=== PATIENT | male | born 1945 | race Caucasian/White ===

== ENCOUNTER 2018-09-13 18:59 | Emergency (ER) | payer OTHER, MEDICARE ==
[2018-09-13 19:09] VITALS: TEMP 98.3
[2018-09-13] MEDS ORDERED: SODIUM CHLORIDE 0.9% 1,000 ML IV STA (19:20)
--- NOTE | 2018-09-13 19:21 | ED ---
Recheck HPI - General Chief Complaint: Recheck/Abnormal Lab/Rx Stated Complaint: High BP Time Seen by Provider: 09/13/18 19:20 Source: patient, RN notes reviewed, old records reviewed Mode of arrival: wheelchair Limitations: no limitations - History of Present Illness Initial Comments: This is a 72-year-old male the ER for evaluation of elevated blood pressure. Patient has history of high blood pressure, patient is and monitoring of blood pressure decreased rate to the nursing and was high. Patient notes that the blood pressure is been slowly increasing. He is asymptomatic denies headache chest pain shortness of breath or abdominal pain. No recent change in medications denies drugs or alcohol MD Complaint: other (Abnormal blood pressure, elevated from normal) -: unknown Returns Today for: other (Patient concern for elevated blood pressure) Symptoms Since Prior Visit: no new symptoms Associated Symptoms: none - Related Data Home Medications Medication Instructions Recorded Confirmed Aspirin EC [Ecotrin Low Dose] 81 mg PO BID 09/13/18 09/13/18 Baclofen [Lioresal] 10 mg PO BID PRN 09/13/18 09/13/18 Finasteride [Proscar] 5 mg PO HS 09/13/18 09/13/18 Losartan Potassium 50 mg PO BID 09/13/18 09/13/18 Naproxen 500 mg PO AC-BID 09/13/18 09/13/18 Pravastatin Sodium [Pravachol] 40 mg PO HS 09/13/18 09/13/18 Sertraline [Zoloft] 50 mg PO DAILY 09/13/18 09/13/18 Tamsulosin HCl [Flomax] 0.4 mg PO HS 09/13/18 09/13/18 amLODIPine [Norvasc] 5 mg PO BID 09/13/18 09/13/18 hydrALAZINE HCL [Apresoline] 50 mg PO TID 09/13/18 09/13/18 traMADol HCL [Ultram] 50 mg PO TID PRN 09/13/18 09/13/18 Previous Rx's Medication Instructions Recorded Metoprolol Tartrate [Lopressor] 50 mg PO BID #60 tab 09/13/18 Allergies Allergy/AdvReac Type Severity Reaction Status Date / Time Iodinated Contrast- Oral and Allergy Rash/Hives Verified 09/13/18 19:43 IV Dye Review of Systems ROS Statement: Those systems with pertinent positive or pertinent negative responses have been documented in the HPI. ROS Other: All systems not noted in ROS Statement are negative. Past Medical History Past Medical History: Hypertension, Pneumonia History of Any Multi-Drug Resistant Organisms: None Reported Past Surgical History: Hernia Repair Additional Past Surgical History / Comment(s): cataract, eye lift Past Psychological History: PTSD Smoking Status: Never smoker Past Alcohol Use History: Rare Past Drug Use History: None Reported General Exam Limitations: no limitations General appearance: alert, in no apparent distress Head exam: Present: atraumatic, normocephalic, normal inspection Eye exam: Present: normal appearance, PERRL, EOMI. Absent: scleral icterus, conjunctival injection, periorbital swelling ENT exam: Present: normal exam, mucous membranes moist Neck exam: Present: normal inspection. Absent: tenderness, meningismus, lymphadenopathy Respiratory exam: Present: normal lung sounds bilaterally. Absent: respiratory distress, wheezes, rales, rhonchi, stridor Cardiovascular Exam: Present: regular rate, normal rhythm, normal heart sounds. Absent: systolic murmur, diastolic murmur, rubs, gallop, clicks GI/Abdominal exam: Present: soft, normal bowel sounds. Absent: distended, tenderness, guarding, rebound, rigid Extremities exam: Present: normal inspection, full ROM, normal capillary refill. Absent: tenderness, pedal edema, joint swelling, calf tenderness Back exam: Present: normal inspection Neurological exam: Present: alert, oriented X3, CN II-XII intact Psychiatric exam: Present: normal affect, normal mood Skin exam: Present: warm, dry, intact, normal color. Absent: rash Course Vital Signs 09/13/18 09/13/18 09/13/18 19:05 19:09 20:20 Temperature 98.3 F Pulse Rate 80 80 70 Respiratory 18 16 16 Rate Blood Pressure 168/88 108/100 180/100 O2 Sat by Pulse 97 100 100 Oximetry 09/13/18 09/13/18 21:06 21:54 Temperature 98.3 F Pulse Rate 70 66 Respiratory 18 Rate Blood Pressure 190/99 168/95 O2 Sat by Pulse 96 Oximetry Medical Decision Making - Medical Decision Making 72 male the ER for evaluation of elevated blood pressure, blood pressures improved blood here in the emergency room. Patient can be discharged home - Lab Data Result diagrams: 09/13/18 19:21 09/13/18 19:21 Lab Results 09/13/18 09/13/18 09/13/18 Range/Units 19:21 19:21 19:21 WBC 7.2 (3.8-10.6) k/uL RBC 5.25 (4.30-5.90) m/uL Hgb 13.8 (13.0-17.5) gm/dL Hct 41.1 (39.0-53.0) % MCV 78.2 L (80.0-100.0) fL MCH 26.3 (25.0-35.0) pg MCHC 33.7 (31.0-37.0) g/dL RDW 14.6 (11.5-15.5) % Plt Count 204 (150-450) k/uL Neutrophils % 74 % Lymphocytes % 15 % Monocytes % 6 % Eosinophils % 3 % Basophils % 1 % Neutrophils # 5.3 (1.3-7.7) k/uL Lymphocytes # 1.1 (1.0-4.8) k/uL Monocytes # 0.4 (0-1.0) k/uL Eosinophils # 0.2 (0-0.7) k/uL Basophils # 0.0 (0-0.2) k/uL Sodium 138 (137-145) mmol/L Potassium 3.6 (3.5-5.1) mmol/L Chloride 103 (98-107) mmol/L Carbon Dioxide 26 (22-30) mmol/L Anion Gap 9 mmol/L BUN 13 (9-20) mg/dL Creatinine 0.67 (0.66-1.25) mg/dL Est GFR (CKD-EPI)AfAm >90 (>60 ml/min/1.73 sqM) Est GFR (CKD-EPI)NonAf >90 (>60 ml/min/1.73 sqM) Glucose 127 H (74-99) mg/dL Calcium 9.1 (8.4-10.2) mg/dL Phosphorus 3.1 (2.5-4.5) mg/dL Magnesium 2.1 (1.6-2.3) mg/dL Total Bilirubin 0.5 (0.2-1.3) mg/dL AST 18 (17-59) U/L ALT 19 L (21-72) U/L Alkaline Phosphatase 99 (38-126) U/L Troponin I (0.000-0.034) ng/mL NT-Pro-B Natriuret Pep 70 pg/mL Total Protein 6.8 (6.3-8.2) g/dL Albumin 4.1 (3.5-5.0) g/dL 09/13/18 Range/Units 19:21 WBC (3.8-10.6) k/uL RBC (4.30-5.90) m/uL Hgb (13.0-17.5) gm/dL Hct (39.0-53.0) % MCV (80.0-100.0) fL MCH (25.0-35.0) pg MCHC (31.0-37.0) g/dL RDW (11.5-15.5) % Plt Count (150-450) k/uL Neutrophils % % Lymphocytes % % Monocytes % % Eosinophils % % Basophils % % Neutrophils # (1.3-7.7) k/uL Lymphocytes # (1.0-4.8) k/uL Monocytes # (0-1.0) k/uL Eosinophils # (0-0.7) k/uL Basophils # (0-0.2) k/uL Sodium (137-145) mmol/L Potassium (3.5-5.1) mmol/L Chloride (98-107) mmol/L Carbon Dioxide (22-30) mmol/L Anion Gap mmol/L BUN (9-20) mg/dL Creatinine (0.66-1.25) mg/dL Est GFR (CKD-EPI)AfAm (>60 ml/min/1.73 sqM) Est GFR (CKD-EPI)NonAf (>60 ml/min/1.73 sqM) Glucose (74-99) mg/dL Calcium (8.4-10.2) mg/dL Phosphorus (2.5-4.5) mg/dL Magnesium (1.6-2.3) mg/dL Total Bilirubin (0.2-1.3) mg/dL AST (17-59) U/L ALT (21-72) U/L Alkaline Phosphatase (38-126) U/L Troponin I <0.012 (0.000-0.034) ng/mL NT-Pro-B Natriuret Pep pg/mL Total Protein (6.3-8.2) g/dL Albumin (3.5-5.0) g/dL - EKG Data -: EKG Interpreted by Me (EKG shows sinus rhythm rate of 77, NJ 156, QRS 92, QTc 423) Disposition Clinical Impression: Hypertension Disposition: HOME SELF-CARE Condition: Good Instructions (If sedation given, give patient instructions): Hypertension (ED) Prescriptions: Metoprolol Tartrate [Lopressor] 50 mg PO BID #60 tab Is patient prescribed a controlled substance at d/c from ED?: No Referrals: [facility],Clinic [Primary Care Provider] - 1-2 days
[2018-09-13 19:41] LABS: Basophils % (A) 1 %; Eosinophils # (A) 0.2 k/uL (0-0.7); Eosinophils % (A) 3 %; HCT 41.1 % (39.0-53.0); HGB 13.8 gm/dL (13.0-17.5); Lymphocytes # (A) 1.1 k/uL (1.0-4.8); Lymphocytes % (A) 15 %; MCH 26.3 pg (25.0-35.0); MCHC 33.7 g/dL (31.0-37.0); MCV 78.2 fL (80.0-100.0); Mean Platelet Volume 7.7; Monocytes # (A) 0.4 k/uL (0-1.0); Monocytes % (A) 6 %; Neutrophils # (A) 5.3 k/uL (1.3-7.7); Neutrophils % (A) 74 %; Platelet Count 204 k/uL (150-450); RBC 5.25 m/uL (4.30-5.90); RDW 14.6 % (11.5-15.5); WBC 7.2 k/uL (3.8-10.6)
[2018-09-13 19:58] LABS: Sodium 138 mmol/L (137-145)
[2018-09-13 20:00] LABS: ALT 19 U/L (21-72); AST 18 U/L (17-59); African American GFR (CKD) >90 (>60 ml/min/1.73 sqM); Albumin 4.1 g/dL (3.5-5.0); Alkaline Phosphatase 99 U/L (38-126); Anion Gap 9 mmol/L; Blood Urea Nitrogen 13 mg/dL (9-20); Calcium 9.1 mg/dL (8.4-10.2); Carbon Dioxide 26 mmol/L (22-30); Chloride 103 mmol/L (98-107); Glucose 127 mg/dL (74-99); Magnesium 2.1 mg/dL (1.6-2.3); Phosphorus 3.1 mg/dL (2.5-4.5); Potassium 3.6 mmol/L (3.5-5.1); Total Bilirubin 0.5 mg/dL (0.2-1.3); Total Protein 6.8 g/dL (6.3-8.2)
[2018-09-13] MEDS ORDERED: LABETALOL SYRINGE 5 MG/ML IVP STA (20:42)
[2018-09-13 21:55] VITALS: BP 168/95; PULSE 66; RESP 18
== END 2018-09-13 21:55 | disposition home or self-care (01) ==
LOC: EC 18:59
DX: I10 Essential (primary) hypertension (principal); F43.10 Post-traumatic stress disorder, unspecified; Z91.041 Radiographic dye allergy status; Z79.1 Long term (current) use of non-steroidal anti-inflammatories (NSAID); Z79.82 Long term (current) use of aspirin; Z79.899 Other long term (current) drug therapy
CPT/HCPCS: 36415; 80053; 83735; 83880; 84100; 84484; 85025; 93005; 96361; 96374; 99284

== ENCOUNTER → 2018-10-14 | Outpatient (CLI) | payer OTHER ==
--- NOTE | 2018-10-14 10:48 | MR ---
EXAMINATION TYPE: MR lumbar spine wo con DATE OF EXAM: 10/14/2018 COMPARISON: None HISTORY: Low back pain TECHNIQUE: Multiplanar, multisequence images of the lumbar spine were acquired. L1-L2: Posterior broad-based disc bulge causes mild anterior mass effect on the thecal sac. No signif icant central stenosis. Facet arthropathy with hypertrophy of the ligamentum flavum causes some poste rior lateral mass effect on the thecal sac. No significant foraminal encroachment. L2-L3: Posterior broad-based disc bulge causes anterior mass effect on the thecal sac resulting in mo derate central stenosis. Circumferential extension endplate disc complex encroaches on the foramina g reater on the right and left, there is facet arthropathy with hypertrophy ligamentum flavum causing s ome posterior lateral mass effect on the thecal sac. L3-L4: Listhesis contributes with the posterior broad-based disc bulge, facet arthropathy and hypertr ophic ligamentum flavum flavum change to cause some moderate central stenosis. Circumferential extens ion endplate disc complex also causes some bilateral foraminal encroachment. L4-L5: Posterior broad-based disc bulge causes mild mass effect on the anterior thecal sac and possib ly contacting the proximal L5 nerve roots. Facet arthropathy change with hypertrophy ligamentum flavu m causes some minimal posterior lateral mass effect on the thecal sac greater from the right. Circumf erential extension endplate disc complex results in some right-sided foraminal encroachment greater t marquez left. Only mild central stenosis. L5-S1: Minimal broad-based disc bulge contacts anterior thecal sac and possibly the proximal S1 nerve roots. No significant central stenosis or foraminal encroachment. Lumbar segments are intact. No paraspinal masses are identified. Conus medullaris has a normal appe arance. There is a slight spinal curvature. Lumbar vertebral bodies show preserved height. Minimal an terolisthesis grade 1 L3-4, anterolisthesis grade 1 L1-2 is minimal. There is multilevel spondylosis with minimal endplate discogenic marrow signal change. Loss of disc height and signal greatest at L3- 4, L2-3 and L1-2 compatible with disc desiccation and degenerative disc disease. IMPRESSION: Multilevel degenerative disc disease, facet arthropathy, foraminal encroachment, spinal stenosis grea test at L3-4
== END | disposition home or self-care (01) ==
LOC: RADMRIMAIN 08:31
PROVIDERS: ATTEND Psychiatry & Neurology Neurology
DX: M48.061 Spinal stenosis, lumbar region without neurogenic claudication (principal); M51.36 Other intervertebral disc degeneration, lumbar region; M46.96 Unspecified inflammatory spondylopathy, lumbar region; Z91.048 Other nonmedicinal substance allergy status
CPT/HCPCS: 72148